=== PATIENT | female | born 1955 | race Two or more races ===

== ENCOUNTER 2019-09-19 23:04 | Emergency (ER) | payer OTHER ==
[~2019-09-19] VITALS: Ht 162.6 cm; Wt 97.5 kg
[2019-09-19] MEDS ORDERED: SYNTHROID75 MCG (23:27)
[2019-09-20] MEDS ORDERED: KETO10TA2 PO (03:02)
== END 2019-09-20 03:16 | disposition home or self-care (01) ==
LOC: ER 23:04
DX: S52.592A Other fractures of lower end of left radius, initial encounter for closed fracture (principal); M12.532 Traumatic arthropathy, left wrist; W01.198A Fall on same level from slipping, tripping and stumbling with subsequent striking against other object, initial encounter; Y93.89 Activity, other specified; Y92.89 Other specified places as the place of occurrence of the external cause; Y99.8 Other external cause status

== ENCOUNTER 2019-10-04 07:04 | Day surgery (SDC) | payer OTHER ==
[~2019-10-04 07:04] MED LIST: KETO10TA2 PO; SYNTHROID75 MCG
== END 2019-10-04 16:10 | disposition home or self-care (01) ==
LOC: CIR.AMB 07:04 → ADM 15:15 → CIR.AMB 16:10
DX: S52.532A Colles' fracture of left radius, initial encounter for closed fracture (principal)
CPT/HCPCS: 25609; 25118; 25280; C1776